=== PATIENT | female | born 1990 | race African-American/Black ===

== ENCOUNTER 2016-02-18 12:28 | Emergency (ER) | payer OTHER ==
[~2016-02-18] VITALS: Ht 165.1 cm; Wt 45.4 kg
[~2016-02-18 12:28] MED LIST: ALLEGRA-D 12 H1 EACH PO; BACTRIM DS TAB1 EACH PO; CIPROFLOXACIN500 M1 PO; NOHOMEMEDICATIONS; TESSALON PERLE100 MG PO; TRAMADOL 50 MG50 MG PO; ZOFRAN ODT4 MG PO; [UNRECOGNIZED DRUG - OTHER] MC
[2016-02-18 13:46] LABS: URINE BLOOD TRACE (Negative); URINE COLOR YELLOW; URINE GLUCOSE-RANDOM* NEGATIVE (Negative); URINE KETONES 3+ (Negative); URINE LEUKOCYTES-REFLEX TRACE (Negative); URINE PROTEIN (DIPSTICK) 1+ (Negative); URINE SPECIFIC GRAVITY >= 1.030 (1.003-1.035); URINE UROBILINOGEN 0.2 E.U./dl (0.2-1.0)
[2016-02-18 13:48] LABS: HEMATOCRIT 25.7 % (37.0-47.0); HEMOGLOBIN 8.5 gm/dL (12.0-15.0); MCH 27.6 pg (26.0-34.0); MCHC 33.1 % (28.0-37.0); MCV 83.4 fL (80.0-100.0); PLATELET COUNT 469 thou/uL (150-400); RBC 3.08 mil/uL (4.20-5.00); RDW 17.7 % (10.5-14.5); WBC 12.8 thou/uL (4.0-11.0)
[2016-02-18 13:53] LABS: URINE BILIRUBIN NEGATIVE (Negative)
[2016-02-18 13:56] LABS: CASTS None Seen /LPF (None Seen); SQUAMOUS 4-10 Moderate /LPF (0-3); URINE RBC 0-2 Rare /HPF (0-2); URINE WBC-REFLEX 6-15 Few /HPF (0-5)
[2016-02-18 13:57] LABS: CALCIUM 9.1 mg/dL (8.5-10.1); CREATININE 0.9 mg/dL (0.6-1.3); POTASSIUM 3.4 mmol/L (3.5-5.1)
[2016-02-18 13:57] LABS: CRYSTALS None Seen /LPF (None Seen)
[2016-02-18 13:59] LABS: MANUAL DIFF YES
[2016-02-18 14:03] LABS: ALBUMIN 4.1 g/dL (3.4-5.0); TOTAL BILIRUBIN 1.6 mg/dL (<0.1-1.0); TOTAL PROTEIN 7.6 g/dL (6.4-8.2)
[2016-02-18 14:50] LABS: ABSOLUTE NEUTROPHILS 10.6 thou/uL (1.4-8.2); ANISOCYTOSIS 2+; POLYCHROMASIA SLIGHT; TOTAL CELL COUNT 100
[2016-02-18 14:51] LABS: HYPOCHROMASIA 1+
[2016-02-18] MEDS ORDERED: IRON325 PO (17:40)
[2016-02-18] MEDS ORDERED: PHENERGAN 25 MG25 M1 PO (17:40)
[2016-02-18] MEDS ORDERED: TESSALON PERLE100 MG PO (17:40)
[2016-02-18 17:54] VITALS: BP 118/73
[2016-03-14] MEDS ORDERED: ANUSOL-HC25 MG RECTAL (12:39)
[2016-03-14] MEDS ORDERED: LIDOCAINE 22 %/30 GM RECTAL (12:39)
[2016-03-24] MEDS ORDERED: OXYCODONE-APAP1 EAC6 PO (15:12)
[2016-03-24] MEDS ORDERED: PROTONIX40 M1 PO ×2 (15:13→15:18)
[2016-03-24] MEDS ORDERED: LEVAQUIN 500 M500 M2 PO ×2 (15:14→15:18)
[2016-04-03] MEDS ORDERED: PANTOPRAZOLE SO40 M1 PO (16:42)
== END 2016-02-18 17:54 | disposition home or self-care (01) ==
LOC: ER 12:28
PROVIDERS: Physician Assistant
DX: D64.9 Anemia, unspecified (principal); E86.0 Dehydration; R05 Cough; R11.2 Nausea with vomiting, unspecified; D72.828 Other elevated white blood cell count; F17.210 Nicotine dependence, cigarettes, uncomplicated; Z90.49 Acquired absence of other specified parts of digestive tract; Z91.040 Latex allergy status